=== PATIENT | male | born 1965 | race Caucasian/White ===

== ENCOUNTER 2017-08-26 12:35 | Inpatient (IN) | payer BC ==
--- NOTE | 2017-08-23 03:46 | HP ---
HISTORY AND PHYSICAL: DATE OF ADMISSION/SURGERY: 08/26/17 DATE OF OFFICE VISIT: 08/20/17 SURGEON: Ashly Jones MD * (DICTATED BY CARLOS GRUBER) PROCEDURE: Removal of hardware, right hip. CHIEF COMPLAINT: Right hip pain. HISTORY OF PRESENT ILLNESS: Mr. Norwood is a 51-year-old gentleman who underwent a right total hip arthroplasty back in May. Since that time, he has had pain in the right hip radiating down the right leg with numbness and tingling of the right foot and weakness of his right foot. A CT scan shows a screw that is abutting the right sciatic nerve. Conservative treatment with medications has not helped with the pain and he is elected to proceed with surgery to remove the screw. PAST MEDICAL HISTORY: Hypertension, history of AFib, and high cholesterol. PAST SURGICAL HISTORY: Right total hip arthroplasty, left ring finger fracture surgery, tonsillectomy, testicular torsion surgery for the left, and hernia repair. CURRENT MEDICATIONS: 1. Aspirin. 2. Gabapentin 300 mg 3 times a day. 3. Amlodipine 10 mg daily. 4. Toprol 25 mg daily. ALLERGIES: None. FAMILY HISTORY: Heart disease, pulmonary hypertension, diabetes, and RA. SOCIAL HISTORY: He is a 51-year-old gentleman, lives with his spouse. He is self- employed contractor. He does not smoke or use drugs. He uses occasional alcohol. REVIEW OF SYSTEMS: A complete 14-point review of systems was reviewed with the patient, it was all negative or noncontributory. He does have a history of severe vomiting with general anesthesia. PHYSICAL EXAMINATION GENERAL: He is well developed, well nourished, in no acute distress. VITAL SIGNS: Stands 6 feet 2 inches tall, weighs 227 pounds. His blood pressure is 127/80, his heart rate is 75. HEENT: Normocephalic, atraumatic. NECK: Supple. No palpable lymph nodes. PULMONARY: The lungs are clear to auscultation bilaterally. CARDIO: Regular rate and rhythm. Strong S1, S2. ABDOMEN: Soft, nontender, and nondistended. NEUROLOGIC: Alert and oriented x3. Cranial nerves II through XII are intact. MUSCULOSKELETAL: Right lower extremity, the skin is intact. There are no open wounds or abrasions. There is a well-healed incision over the lateral right thigh. He has decreased sensation over the right lateral lower leg dorsal foot and great toe. He is unable to dorsiflex the right foot. He has a complete right toe drop in 1/5 weakness with right plantar flexion. He has 2+ dorsalis pedis pulses. ASSESSMENT AND PLAN: Mr. Norwood is a 51-year-old gentleman who underwent a right total hip arthroplasty in May. He is having pain, numbness, tingling, and weakness of his right lower leg and foot. CT scan showed a screw through the right sciatic nerve. He is elected to proceed with surgery to have this hardware remove. The surgery is scheduled for 08/26/[address] Jones discussed the risks and benefits of surgery at today's visit and all of his questions were answered. He will follow up in 2 weeks after the surgery with Dr. Jones. CARLOS GRUBER [id number]/[facility] #: [id number] ABRIL
--- NOTE | 2017-08-24 13:48 | HP ---
ADDENDUM: DATE OF SURGERY: 08/26/17 SURGEON: Ashly Jones MD. PROCEDURE: Revision right total hip arthroplasty with screw removal and possible liner removal. CARLOS GRUBER [id number]/[facility] #: [id number] MTDD
[~2017-08-26 12:35] MED LIST: Buffered Lidocaine 0.9% SYRIN* 5 ML/SYR SYRINGE INTRADERM ONE; Dexamethasone IV* 4 MG/ML 1 ML (4 MG) IV SLOW PU ONE; Famotidine IV* 10 MG/ML 2 ML (20 mg) IV ONE
[2017-08-26] MEDS ORDERED: ceFAZolin 2 GM PREMIX (*) 2 GM/50 ML BAG IVPB ONE (12:51)
[2017-08-26] MEDS ORDERED: Famotidine IV* 10 MG/ML 2 ML (20 mg) ONE (12:51)
[2017-08-26] MEDS ORDERED: Dexamethasone IV* 4 MG/ML 1 ML (4 MG) ONE (12:51)
[2017-08-26] MEDS ORDERED: Buffered Lidocaine 0.9% SYRIN* 5 ML/SYR SYRINGE ONE (12:51)
[2017-08-26] MEDS ORDERED: fentaNYL* 50 MCG/ML 2 ML VIAL (100 MCG VIAL) IV PRN (13:23)
[2017-08-26] MEDS ORDERED: Ondansetron INJ* 2 MG/ML VIAL IV PRN ×2 (13:23→18:01)
[2017-08-26] MEDS ORDERED: PROCHLORPERAZINE INJ 5 MG/ML 2 ML VIAL IV PRN (13:23)
[2017-08-26] MEDS ORDERED: oxyCODONE TAB* 5 MG TAB PO PRN (13:23)
[2017-08-26] MEDS ORDERED: Ibuprofen TAB* 600 MG PO PRN (13:23)
[2017-08-26] MEDS ORDERED: HYDROmorphone INJ* 1 MG/ML CARPUJECT SYRINGE IV PRN (13:23)
[2017-08-26] MEDS ORDERED: oxyCODONE/Acetamin 5/325 MG* TAB PO PRN ×3 (13:23→18:01)
[2017-08-26] MEDS ORDERED: Scopolamine 1.5 mg* PATCH TRANSDERM PRN (13:23)
[2017-08-26] MEDS ORDERED: Lidocaine 2% PF * 5 ML VIAL ONE (13:26)
[2017-08-26] MEDS ORDERED: fentaNYL* 50 MCG/ML 2 ML VIAL (100 MCG VIAL) ONE (13:26)
[2017-08-26] MEDS ORDERED: Cisatracurium* 2 MG/ML MDV 5 ML ONE (13:26)
[2017-08-26] MEDS ORDERED: Midazolam* 1 MG/ML 2 ML VIAL (2 MG) ONE (13:26)
[2017-08-26] MEDS ORDERED: Propofol* 10 MG/ML 20 ML BTL IV PUSH ONE ×2 (13:26→16:28)
[2017-08-26] MEDS ORDERED: Sterile Water for Inj* 10 ML ONE (16:11)
[2017-08-26] MEDS ORDERED: Esmolol* 10 MG/ML 10 ML (100 mg) ONE (16:11)
[2017-08-26] MEDS ORDERED: Ketorolac INJ* 30 MG/ML 1 ML VIAL ONE (16:11)
[2017-08-26] MEDS ORDERED: EPHEDrine (Pressors)* 50 MG/ML VIAL ONE (16:11)
[2017-08-26] MEDS ORDERED: Ondansetron INJ* 2 MG/ML VIAL ONE ×2 (16:11→19:02)
[2017-08-26] MEDS ORDERED: Phenylephrine IV* 40 MCG/ML 10 ML SYRINGE ONE (16:11)
[2017-08-26] MEDS ORDERED: HYDROmorphone INJ* 1 MG/ML CARPUJECT SYRINGE ONE (16:29)
[2017-08-26] MEDS ORDERED: Ondansetron TAB* 4 MG PO PRN (18:01)
[2017-08-26] MEDS ORDERED: Acetaminophen TAB* 325 MG PO PRN (18:01)
[2017-08-26] MEDS ORDERED: Bisacodyl SUPP* 10 MG SUPP PR PRN (18:01)
[2017-08-26] MEDS ORDERED: diPHENhydraMINE IV* 50 MG/ML 1 ml VIAL (BENADRYL) IV PRN (18:01)
[2017-08-26] MEDS ORDERED: Polyethylene Glycol 3350* 17 GM PACKET PO PRN (18:01)
[2017-08-26] MEDS ORDERED: Magnesium Hydroxide LIQ* 30 ML UDC PO PRN (18:01)
[2017-08-26] MEDS ORDERED: Morphine INJ* 2 MG/ML 1 ML SYRINGE (TWO MG - NEW SYRINGE VERSION) IV PRN (18:01)
[2017-08-26] MEDS ORDERED: Cyclobenzaprine TAB* 10 MG PO PRN (18:06)
--- NOTE | 2017-08-26 18:10 | RAD ---
Indication: Right total hip arthroplasty with revision. Single intraoperative view of the right hip demonstrates right acetabular cup and femoral reamer in place. IMPRESSION: Intraoperative control films for right hip replacement.
[2017-08-26] MEDS ORDERED: Bupivacaine 0.5% SDV PF* 30 ML VIAL ONE (18:11)
[2017-08-26] MEDS ORDERED: PROCHLORPERAZINE INJ 5 MG/ML 2 ML VIAL ONE (19:02)
--- NOTE | 2017-08-26 19:31 | RAD ---
Indication: Right hip replacement. 2 views of the right hip demonstrates right hip replacement in satisfactory position. No loosening is noted. Components appear to be satisfactory. IMPRESSION: Right hip replacement is in satisfactory position.
--- NOTE | 2017-08-26 19:33 | RAD ---
Indication: Status post right hip replacement. Single view of the pelvis demonstrates right hip replacement in satisfactory position. Portillo catheter is in place. IMPRESSION: Right hip replacement in satisfactory position.
[2017-08-26] MEDS: Gabapentin CAP(*) 300 MG PO SCH (21:04)
[2017-08-26] MEDS: Docusate CAP* 100 MG PO SCH (21:05)
[2017-08-26] MEDS: ceFAZolin 1 GM VIAL(*) 1 GM in D5W 50 ML BAG* 50 ML IVPB SCH (23:53)
--- NOTE | 2017-08-27 03:28 | OP ---
DATE OF OPERATION: 08/26/17 - ROOM #[id number] DATE OF : 61 SURGEON: Ashly Jones MD NUMERICAL CONTROL ROUTER OPERATOR: CARLOS Merino. Ms. Weinstein did help throughout the procedure with preparation of the leg, wound retraction, manipulation of the hip, and wound closure. ANESTHESIOLOGIST: Selena Garsia MD ANESTHESIA: General. PRE-OP DIAGNOSES: Severe pain and sciatic nerve palsy, right lower extremity. POST-OP DIAGNOSES: Severe pain and sciatic nerve palsy, right lower extremity. OPERATIVE PROCEDURE: Revision, right total hip arthroplasty with exchange of the polyethylene liner, femoral head, and removal of an acetabular screw. INDICATIONS: Mr. Norwood is a 51-year-old gentleman, who had right total hip arthroplasty at an outside facility in May of this year. In the immediate postoperative period, he noted extreme pain in the right lower extremity and a dense sciatic nerve palsy. The patient has struggled with footdrop and severe pain since the surgery. He did go on to have a nerve conduction study that showed this was a high level lumbosacral nerve injury. CT scan did show one of the acetabular screws extended through the bone and did make contact with portion of the sciatic nerve. The patient saw me for his consultation and wished to have the screw removed in the hopes that this would lessen some of his pain and allow his nerve palsy to improve down the road. The patient and his understood that I could not guarantee any improvement in symptoms after screw removal. I agreed to the revision surgery with the understanding that they accepted increased risk of infection, increased risk of dislocation, and several other risks due to the second surgical approach within 3 months. The patient and his accepted the surgical risks. They wished to proceed. The patient, his , and I discussed that liner removal and screw removal could proceed smoothly or have complications requiring revision of the entire acetabular cup. They accepted these risks. COMPLICATIONS: None. ESTIMATED BLOOD LOSS: 800 cc. SPECIMEN REMOVED: Screw, femoral head and polyethylene sent to Pathology. INTRAOPERATIVE FINDINGS: Intraoperatively, the patient was noted to have extensive scar tissue and muscle contracture. He had stiff hip with minimal flexion. In the 3 months since his original surgery, he had formed a significant amount of scar. The femoral head and liner were removed and noted to have no obvious abnormalities. The screw was removed and noted to have no obvious abnormality. DESCRIPTION OF PROCEDURE: Mr. Norwood was identified in the preanesthesia unit. His right lower extremity was marked as the correct operative side. Informed consent was signed and placed in the chart. The patient was taken to the operating room and placed under general anesthesia. A Portillo catheter was placed. The patient was placed on left lateral decubitus position on the peg board with all bony prominences well padded. Right lower extremity was prepped and draped in the usual sterile fashion. Preop time-out was made to correctly identify the patient's side and site. Appropriate perioperative antibiotics were given within 1 hour of incision. The patient's prior incision was used and extended 2 cm distally. Skin knife was used to dissect down to the lateral fascial layer. There was extensive scar formation in the subcutaneous fat layer. The lateral fascial layer was identified and incised in line with the skin incision. Soft tissue was carefully cleared around each edge of the lateral fascial layer. Charnley retractor was placed. Single posterior flap was made with electrocautery through the prior tendons and capsule region. This was carried down to bone for the safest approach. This flap was tagged with #5 Ethibond's. It was noted that the patient had extensive scar formation. No purulence or signs of infection. It was noted that the patient had extremely stiff hip with difficulty flexing and moving the head. Scar tissue was meticulously debrided from around the acetabulum and polyethylene. The hip was carefully dislocated. Using a bone tamp, the femoral head was removed. No damage to the femoral neck was noted. Femoral head was with-out abnormality. Next, dissection continued around the polyethylene liner and acetabular cup. Extensive scar formation had occurred and this was carefully debrided from around the polyethylene liner. A cancellous bone screw and drill were used to carefully remove the polyethylene liner. Polyethylene liner had no obvious damage to it. At this point, the hip was copiously irrigated with sterile saline. Once more, the edges of the acetabular cup were carefully attended to with electrocautery and rongeur. Any scar tissue was carefully removed. The inferior posterior screw was carefully removed using a screw route driver coin machines. There was no complication with this. A trial 44 liner was placed in a trial 44 plus 0 femoral head. The hip was reduced and taken through a range of motion. The hip was stable in all positions. A flat AP view of the hip was obtained intraoperatively. It was confirmed that the appropriate screw had been removed. The hip was carefully dislocated. All trials were removed. Final implant chosen was a Trident X3 0-degree polyethylene insert, 44G. This was carefully impacted into the acetabular cup. First attempt at this did damage the polyethylene liner. The liner was noted to have a scratch on it. Therefore, this was discarded and a second one was opened. 44G Trident X3 0-degree polyethylene insert was impacted into the acetabulum. Stability of the liner was checked and rechecked and noted to be stable. Next, a 44 +0 Biolox delta anatomic femoral head with a +0 adapter sleeve was chosen. This was impacted on to the femoral neck without difficulty. The hip was carefully dislocated. The hip was taken through range of motion and noted to be stable in all positions. The hip was copiously irrigated with sterile saline. The previously tagged capsular flap was reapproximated to the posterolateral femur through two trochanteric drill holes. Lateral fascial layer was closed using interrupted # 1 Vicryls. The rest of the incision was closed in layered fashion using 0 and 2 -0 Vicryls. The skin was closed using running 3-0 Monocryl and Dermabond. Sterile Adaptic, 4x4's, and paper tape were used to cover the incision. The patient's anesthesia was reversed without difficulty. He was taken to the PACU in stable condition. Intended weightbearing will be weightbearing as tolerated with strict posterior hip precautions. Intended DVT prophylaxis will be Coumadin with a Lovenox bridge. [id number]/[facility] #: [id number] ABRIL
--- NOTE | 2017-08-27 05:50 | CONSULT ---
Consult Consult: PCP: Maury Palacio NP Date/Time: 08/26/2017 2100 Reason for Consult: management of pAFIB, HTN, & HLD HPI: Mr Norwood is a 51YO male HX R ARIADNE 05/2017 complicated by sciatic-type pain ever since. Ultimately it was found that an acetabular screw was abutting his sciatic nerve and so urgent removal was arranged and performed this evening. He is seen in recovery and denies pain, N/V, SOB, or other issues. PMedHx pAFIB not on anticoagulation HTN HLD Ambulatory Orders Amlodipine Besylate [Norvasc 5 mg tab] 10 mg PO DAILY 11/16/16 Metoprolol Succinate [Toprol Xl] 25 mg PO QAM 11/16/16 Gabapentin CAP(*) [Neurontin 300 CAP(*)] 300 mg PO TID 08/24/17 Allergies No Known Allergies Allergy (Verified 08/26/17 13:05) PSurgHx tonsillectomy hernia repair L testicular torsion ORIF L 4th finger R ARIADNE complicated by acetabular screw abutting the sciatic nerve SocHx: no tobacco, occasional alcohol, no recreational drugs; lives with his ; self-employed contractor; full code status FamHx: positive for HTN, CAD, DM2, RA ROS: as above, otherwise reviewed and all were negative vitals: Vital Signs Temp 36.7 C 08/27/17 02:15 Pulse 92 08/27/17 02:15 Resp 17 08/27/17 02:15 BP 124/65 08/27/17 02:15 Pulse Ox 98 08/27/17 02:15 Intake & Output 08/26/17 08/26/17 08/27/17 11:59 23:59 11:59 Intake Total 3775 400 Output Total 2400 1300 Balance 1375 -900 Weight 107.048 kg Intake: IV Fluids 3550 LR 3500 NS 50ML, Cefazolin 2G 50 Oral 225 400 Output: Portillo 1600 1300 Estimated Blood Loss 800 Constitutional: NAD, normally developed, obese white male HEENM: atraumatic; sclera/conjunctiva: anicteric/clear; hearing: clinically intact; oropharynx: clear, mucosa moist Neck: soft tissue: non-tender; thyroid: normal Pulmonary: clear to auscultation bilaterally, good aeration, no accessory muscle use CV: RR/RR, normal S1S2, no carotid bruit, no jugular venous distention, 2+ B DP/ PT, no edema Abdominal: soft, non-distended, non-tender, no rebound/guarding/rigidity, normoactive bowel sounds, no hepatosplenomegaly or masses, no costovertebral angle tenderness Musculoskeletal: general: grossly intact, currently in wedge Integumental: normal appearance and texture of exposed skin Psychiatric orientation: AA&O to PPS affect: calm mood: cooperative eye contact: good content: reliable responses: timely insight: good Testing: Lab Results 08/26/17 Range/Units 16:34 Blood Type A Positive Antibody Screen Negative Impression: 51M evaluated in recover s/p removal/replacement of acetabular screw found abutting the R sciatic nerve DIAGNOSIS & PLAN Primary acetabular screw removal/repositioning : management per orthopedic surgery : pain control Secondary pAFIB : not on anticoagulation : continue metoprolol HTN : continue metoprolol & amlodipine HLD : low fat diet Admission Rational: surgical correction of R acetabular screw abutting the sciatic nerve DVTp: heparin SQ once approved by orthopedics Code Status: full HCP:
[2017-08-27] MEDS: oxyCODONE TAB* 5 MG TAB PO PRN ×2 (06:13→13:06)
[2017-08-27 06:47] LABS: Hematocrit 36 % (42-52); Hemoglobin 12.4 g/dl (14.0-18.0)
[2017-08-27 07:03] LABS: BUN/Creatinine Ratio 14.3 (8-20); Calcium 9.2 mg/dL (8.6-10.3); EGFR African American 122.9 (>60); EGFR Non-African American 95.6 (>60); Potassium 4.2 mmol/L (3.5-5.0)
--- NOTE | 2017-08-27 07:37 | PN ---
Progress Note - Progress Note Date of Service: 08/27/17 SOAP: Subjective: Pt. is alert, reports nerve pain is already improved. Objective: RLE - baseline dense foot drop, 0/5 df/ehl, 2/5 pf, decreased sens lt entire foot, 2+dp pulse. dressing c/d/i, thigh soft. Vital Signs: Temp Pulse Resp BP Pulse Ox 98.1 F 92 17 124/65 98 08/27/17 02:15 08/27/17 02:15 08/27/17 06:13 08/27/17 02:15 08/27/17 02:15 Laboratory Results - last 24 hr 08/26/17 08/27/17 08/27/17 16:34 05:46 05:46 Hgb 12.4 L Hct 36 L INR (Anticoag Therapy) 1.06 H Sodium Potassium Chloride Carbon Dioxide Anion Gap BUN Creatinine Est GFR ( Amer) Est GFR (Non-Af Amer) BUN/Creatinine Ratio Glucose Calcium Blood Type A Positive Antibody Screen Negative 08/27/17 05:46 Hgb Hct INR (Anticoag Therapy) Sodium 137 Potassium 4.2 Chloride 102 Carbon Dioxide 28 Anion Gap 7 BUN 12 Creatinine 0.84 Est GFR ( Amer) 122.9 Est GFR (Non-Af Amer) 95.6 BUN/Creatinine Ratio 14.3 Glucose 127 H Calcium 9.2 Blood Type Antibody Screen Assessment: 51 yo M pod 1 s/p revision RTHA with screw removal, liner and femoral head exchange Plan: wbat strict post hip precautions pt/ot plan d/c to home 08/28
[2017-08-27] MEDS: ceFAZolin 1 GM VIAL(*) 1 GM in D5W 50 ML BAG* 50 ML IVPB SCH ×2 (08:22→16:42)
[2017-08-27] MEDS: Gabapentin CAP(*) 300 MG PO SCH ×3 (08:22→23:47)
[2017-08-27] MEDS: Docusate CAP* 100 MG PO SCH ×2 (08:23→21:00)
[2017-08-27] MEDS: amLODIPine TAB* 5 MG PO SCH (08:23)
[2017-08-27] MEDS: Metoprolol Succinate XL TAB* 25 MG PO SCH (08:23)
--- NOTE | 2017-08-27 11:50 | PN ---
Subjective Date of Service: 08/27/17 Interval History: Pt is feeling well. His pain in his R hip is manageable. He denies any CP or SOB. Objective Active Medications: Acetaminophen (Tylenol Tab*) 650 mg PO Q4H PRN PRN Reason: PAIN OR TEMPERATURE Amlodipine Besylate (Norvasc Tab*) 10 mg PO DAILY [facility] Last Admin: 08/27/17 08:23 Dose: 10 mg Bisacodyl (Dulcolax Supp*) 10 mg [place] DAILY PRN PRN Reason: constipation Cyclobenzaprine HCl (Flexeril Tab*) 10 mg PO TID PRN PRN Reason: SPASMS Diphenhydramine HCl (Benadryl Iv*) 12.5 mg IV Q6H PRN PRN Reason: PRURITIS Docusate Sodium (Colace Cap*) 100 mg PO BID [facility] Last Admin: 08/27/17 08:23 Dose: 100 mg Enoxaparin Sodium (Lovenox(*)) 40 mg SUBCUT Q24H [facility] Gabapentin (Neurontin Cap(*)) 300 mg PO TID [facility] Last Admin: 08/27/17 08:22 Dose: 300 mg Cefazolin Sodium 1 gm/ (Dextrose) 50 mls @ 200 mls/hr IVPB Q8H [facility] Stop: 08/27/17 16:14 Last Admin: 08/27/17 08:22 Dose: 200 mls/hr Lactated Ringer's (Lactated Ringers 1000 Ml Bag*) 1,000 mls @ 100 mls/hr IV PER RATE [facility] Last Admin: 08/27/17 09:17 Dose: 100 mls/hr Lactulose (Lactulose*) 30 ml PO Q6H PRN PRN Reason: constipation Magnesium Hydroxide (Milk Of Magnesia Liq*) 30 ml PO Q6H PRN PRN Reason: constipation Metoprolol Succinate (Toprol Xl Tab*) 25 mg PO QAM [facility] Last Admin: 08/27/17 08:23 Dose: 25 mg Morphine Sulfate (Morphine Inj (Syringe)*) 2 mg IV Q2H PRN PRN Reason: PAIN Ondansetron HCl (Zofran Inj*) 4 mg IV Q6H PRN PRN Reason: nausea Ondansetron HCl (Zofran Tab*) 4 mg PO Q6H PRN PRN Reason: NAUSEA Oxycodone HCl (Roxycodone Tab*) 10 mg PO Q4H PRN PRN Reason: SEVERE PAIN Last Admin: 08/27/17 06:13 Dose: 10 mg Oxycodone/Acetaminophen (Percocet 5/325 Tab*) 1 tab PO Q4H PRN PRN Reason: PAIN Oxycodone/Acetaminophen (Percocet 5/325 Tab*) 2 tab PO Q4H PRN PRN Reason: PAIN Pharmacy Profile Note (Scopolamine Patch Remove*) 1 note PATCH OFF Q72H ONE Stop: 08/29/17 13:25 Polyethylene Glycol/Electrolytes (Miralax*) 17 gm PO DAILY PRN PRN Reason: Constipation Scopolamine (Transderm-Scop 1.5 Mg Patch*) 1 patch TRANSDERM Q72H PRN PRN Reason: Nausea/Vomiting Vital Signs - 8 hr 08/27/17 08/27/17 08/27/17 06:13 07:56 08:00 Temperature 98.8 F Pulse Rate 103 Respiratory 17 16 18 Rate Blood Pressure 124/79 (mmHg) O2 Sat by Pulse 99 99 Oximetry 08/27/17 08/27/17 08/27/17 08:17 08:22 11:02 Temperature Pulse Rate Respiratory 18 18 18 Rate Blood Pressure (mmHg) O2 Sat by Pulse Oximetry Oxygen Devices in Use Now: None Appearance: Middle aged male sitting up in bed, NAD Eyes: No Scleral Icterus Ears/Nose/Mouth/Throat: Mucous Membranes Moist Respiratory: Symmetrical Chest Expansion and Respiratory Effort, Clear to Auscultation Cardiovascular: NL Sounds; No Murmurs; No JVD, - - irregularly irregular, slightly tachycardic Abdominal: NL Sounds; No Tenderness; No Distention Skin: No Rash or Ulcers, No Nodules or Sclerosis Neurological: Alert and Oriented x 3 Result Diagrams: 08/27/17 05:46 08/27/17 05:46 Assess/Plan/Problems-Billing Mr Norwood is a 51 yo M who has a h/o afib and HTN who was admitted following a R total hip revision with Dr. Jones. - Patient Problems (1) S/P revision of total hip Current Visit: Yes Status: Acute Code(s): Z96.649 - PRESENCE OF UNSPECIFIED ARTIFICIAL HIP JOINT SNOMED Code(s): 933750908 Comment: Management per Dr Jones. (2) HTN (hypertension) Current Visit: Yes Status: Acute Code(s): I10 - ESSENTIAL (PRIMARY) HYPERTENSION SNOMED Code(s): 19388300 Comment: BP is under good control on current medication regimen. Continue to monitor. (3) Afib Current Visit: Yes Status: Acute Code(s): I48.91 - UNSPECIFIED ATRIAL FIBRILLATION SNOMED Code(s): 17366020 Comment: HR is mildly elevated but possibly being driven by pain. No other issues. Continue metoprolol XL 25mg daily for now but if HR remains elevated will increase to 37.5mg daily. (4) DVT prophylaxis Current Visit: Yes Status: Acute Code(s): QMI6404 - SNOMED Code(s): 867771865 Comment: elias (5) Full code status Current Visit: Yes Status: Acute Code(s): Z78.9 - OTHER SPECIFIED HEALTH STATUS SNOMED Code(s): 110861359
[2017-08-27] MEDS: Enoxaparin(*) 40 MG/0.4 ML SYR SUBCUT SCH (13:07)
[2017-08-28] MEDS: oxyCODONE TAB* 5 MG TAB PO PRN (04:33)
[2017-08-28 05:31] LABS: Hematocrit 34 % (42-52); Hemoglobin 11.7 g/dl (14.0-18.0); Mean Platelet Volume 7 um3 (7.4-10.4)
[2017-08-28] MEDS: amLODIPine TAB* 5 MG PO SCH (08:36)
[2017-08-28] MEDS: Metoprolol Succinate XL TAB* 25 MG PO SCH (08:36)
[2017-08-28] MEDS: Docusate CAP* 100 MG PO SCH (08:37)
[2017-08-28] MEDS: Gabapentin CAP(*) 300 MG PO SCH (08:37)
[2017-08-28] MEDS ORDERED: Metoprolol Succinate XL TAB* 25 MG PO ONE (09:32)
[2017-08-28 11:28] VITALS: BP 115/71
--- NOTE | 2017-08-28 11:37 | PN ---
Progress Note - Progress Note Date of Service: 08/28/17 SOAP: Subjective: Pt. is alert and oriented, reports nerve pain is improved. Objective: General: Pts HR is increased. Cardiology will see pt today. RLE - baseline dense foot drop, 0/5 df/ehl, 2/5 pf, decreased sens lt entire foot, 2+dp pulse. dressing changed today, incision is c/d/i, no drainage, thigh soft. Vital Signs Temp 99.7 F 08/28/17 11:14 Pulse 109 08/28/17 11:14 Resp 16 08/28/17 11:14 BP 115/71 08/28/17 11:14 Pulse Ox 95 08/28/17 11:14 Intake & Output 08/27/17 08/28/17 08/28/17 18:59 06:59 18:59 Intake Total 1549 600 480 Output Total 475 350 Balance 1074 250 480 Intake: IVPB 1219 ABX - CEFAZOLIN 114 LR 1105 Oral 330 600 480 Output: Urine 475 350 Other: Estimated Void Medium # Bowel Movements 0 Assessment: 51 yo M pod 2 s/p revision RTHA with screw removal, liner and femoral head exchange Plan: wbat strict post hip precautions pt/ot possible discharge today if cardiology clears the pt. ASA 325 bid once home for anticoagulation
[2017-08-28] MEDS: Enoxaparin(*) 40 MG/0.4 ML SYR SUBCUT SCH (12:00)
--- NOTE | 2017-08-28 19:14 | PN ---
Subjective Date of Service: 08/28/17 Interval History: Pt is feeling well. He does not feel his heart racing. He denies any chest pain or SOB. He has mild sciatic type pain in his R leg but was able to do PT today without any difficulty. Nursing notes that his HR is elevated with exertion. Objective Vital Signs - 8 hr 08/28/17 11:14 Temperature 99.7 F Pulse Rate 109 Respiratory 16 Rate Blood Pressure 115/71 (mmHg) O2 Sat by Pulse 95 Oximetry Oxygen Devices in Use Now: None Appearance: Middle aged male sitting in a chair, NAD Eyes: No Scleral Icterus Ears/Nose/Mouth/Throat: Mucous Membranes Moist Respiratory: Symmetrical Chest Expansion and Respiratory Effort, Clear to Auscultation Cardiovascular: NL Sounds; No Murmurs; No JVD, - - tachycardic but regular Abdominal: NL Sounds; No Tenderness; No Distention Extremities: No Clubbing, Cyanosis Skin: No Rash or Ulcers, No Nodules or Sclerosis Neurological: Alert and Oriented x 3 Result Diagrams: 08/28/17 05:21 08/27/17 05:46 Assess/Plan/Problems-Billing Mr Norwood is a 51 yo M who has a h/o afib and HTN who was admitted following a R total hip revision with Dr. Jones. - Patient Problems (1) S/P revision of total hip Status: Acute Code(s): Z96.649 - PRESENCE OF UNSPECIFIED ARTIFICIAL HIP JOINT SNOMED Code(s): 761290151 Comment: Management per Dr Jones. (2) HTN (hypertension) Status: Acute Code(s): I10 - ESSENTIAL (PRIMARY) HYPERTENSION SNOMED Code(s) : 58217442 Comment: BP is under good control on current medication regimen. Continue to monitor. (3) Afib Status: Acute Code(s): I48.91 - UNSPECIFIED ATRIAL FIBRILLATION SNOMED Code( s): 68596260 Comment: The patient is in sinus tachycardia on tele/EKG. Sinus tachycardia likely secondary to pain/recent surgery. I spoke with the coldfusion publication designer and it was felt it was ok to d/c the patient home on his usual dose of metoprolol. As the patient is going home today, I have asked that the patient get a follow up with his PCP in the next few days to ensure his HR has come down. (4) DVT prophylaxis Status: Acute Code(s): ELS8746 - SNOMED Code(s): 854639154 Comment: coumadin (5) Full code status Status: Acute Code(s): Z78.9 - OTHER SPECIFIED HEALTH STATUS SNOMED Code(s) : 776804748
[2017-08-29] MEDS ORDERED: Scopolamine PATCH Remove* 1 NOTE MISC PATCH OFF ONE (13:24)
--- NOTE | 2017-08-30 05:15 | DS ---
DISCHARGE SUMMARY: DATE OF ADMISSION: 08/26/17 DATE OF DISCHARGE: 08/28/17 PROVIDER: Dr. Ashly Jones * (DICTATED BY CARLOS PORRAS) ADMITTING DIAGNOSIS: Removal of hardware of right hip. CONSULTATIONS: Physical Therapy, Occupational Therapy, and Hospital Medicine. HOSPITAL COURSE: The patient was admitted to [facility] on 08/26/17 and underwent a revision of right total hip arthroplasty with no complications. The patient recovered briefly in the postanesthesia care unit and was then transferred to the short stay surgical unit in stable condition. On postop day #1, the patient's H and H was 12.4 and 36, INR was 1.06 after 6 mg of Coumadin the night before. Dressing was clean, dry, and intact. The lower extremity was neurovascularly intact. He could demonstrate dorsiflexion and plantarflexion with good strength. The patient was able to get out of bed with physical therapy. Pain was well controlled with the Percocet 5/325 and Flexeril. On postop day #2, the urinary catheter was discontinued and the patient was able to void without difficulty. Incision was found to be benign with minimal drainage. No erythema or warmth. The patient's H and H was 11.7 and 34 and INR was 1.10 after 6 mg of Coumadin the night before. Pain was well controlled with Percocet again and Flexeril. The patient was able to ambulate with the use of a rolling walker and assistance. The patient's pain was well controlled and found to be stable for discharge. Throughout the hospital course , vital signs remained stable and the patient was afebrile. DISCHARGE CONDITION: Good. DISCHARGE MEDICATIONS: 1. Flexeril. 2. Percocet 5/325. 3. Aspirin 325 b.i.d. Home Medications: 1. Gabapentin 300 mg 3 times a day. 2. Amlodipine 10 mg daily. 3. Metoprolol 25 mg daily. DISCHARGE INSTRUCTIONS: 1. Weight bearing as tolerated. 2. Wound care: Okay to shower. No bathing, swimming, or submerging wound. Use gentle soap, pat dry. Cover with gauze or an Misael wrap or tape. Call orthopedic office for increased drainage, redness, increased pain or fever. Go to ER with shortness of breath or chest pain. 3. Diet: Regular diet. Increase fluids and fibers to prevent constipation. Continue to use stool softeners. Call office if no bowel motion within 48 hours. 4. Continue hip precautions, do no cross legs, or bend greater than 90 degrees or squat. 5. Continue physical therapy and occupational therapy exercises as shown. 6. Visiting home nurses to do wound check. 7. Aspirin 325 b.i.d. x 30 days. 8. Pain control with Percocet 5/325 and Flexeril 10 mg 3 times a day as needed for muscle spasms. 9. Antibiotics required prior to any dental work. 10. Follow up with Dr. Ashly Jones within 10 to 14 days. Call for an appointment. 11. Follow up with PCP for tachycardia sometime this week. CARLOS PORRAS [id number]/[facility] #: [id number] ABRIL
== END 2017-08-28 12:50 | disposition home health service (06) | DRG 301 ==
LOC: AA 12:35 → SSU 20:05
PROVIDERS: ADMIT Orthopaedic Surgery Adult Reconstructive Orthopaedic Surgery; ATTEND Hospitalist
PROC: 0SUR09Z Supplement Right Hip Joint, Femoral Surface with Liner, Open Approach (ICD-10-PCS; 2017-08-26)
PROC: 0SP909Z Removal of Liner from Right Hip Joint, Open Approach (ICD-10-PCS; principal; 2017-08-26 15:00)
DX: T84.090A Other mechanical complication of internal right hip prosthesis, initial encounter (principal); I48.0 Paroxysmal atrial fibrillation; G58.8 Other specified mononeuropathies; I10 Essential (primary) hypertension; E78.5 Hyperlipidemia, unspecified; Y79.2 Prosthetic and other implants, materials and accessory orthopedic devices associated with adverse incidents; M10.9 Gout, unspecified; M21.371 Foot drop, right foot; M54.30 Sciatica, unspecified side; Z82.49 Family history of ischemic heart disease and other diseases of the circulatory system; Y92.009 Unspecified place in unspecified non-institutional (private) residence as the place of occurrence of the external cause; Z83.3 Family history of diabetes mellitus; Z82.61 Family history of arthritis; Z72.89 Other problems related to lifestyle
CPT/HCPCS: 36415; 72170; 80048; 85014; 85018; 85049; 85610; 86850; 86900; 86901; 88300; 93005; 94760; A9270-GY; C1713; C1776; J0690; J0780; J1100; J1170; J1650; J1885; J2250; J2405; J2704; J3010

== ENCOUNTER → 2019-05-05 11:46 | Day surgery (SDC) | payer BC ==
--- NOTE | 2014-08-13 06:45 | HP ---
HISTORY AND PHYSICAL: DATE OF ADMISSION: The patient is scheduled for surgery on 08/24/14 at [facility], [place]. CHIEF COMPLAINT: Symptomatic varicose veins of the right lower leg. HISTORY OF PRESENT ILLNESS: This is a 48-year-old man with a history of painful varicose veins involving the right lower extremity which he has experienced in the past several years. In the past year, this is becoming progressively worse where at this time, he is experiencing pain, cramps, edema, and a sensation of heaviness in the right lower leg. The pain at times is so intense, he has trouble sleeping at night due to the discomfort, the achiness and throbbing, and the increase in intensity has been apparent for the past year. He denies any prior history of deep vein thrombosis or superficial thrombophlebitis. He does have a family history of varicose veins. He did have trauma to his right leg falling off a scaffold in 2004 when he fractured his ankle and experienced some trauma at that time on the right. At the time of his physical exam, on 05/31/14, the varicose veins on the right leg start on the mid portion of his right thigh and transverses anteriorly laterally on the leg. These are large truncal varicosities present which are painful to palpation. He has 1+ edema on the right side. There is no edema on the left. There are no varicosities on the left. There is no hyperpigmentation or ulcerations of the skin on the right. A venous duplex scan done in May revealed the deep system to be normal, there was no evidence of DVT. At the saphenofemoral junction, the reflux time measured at 4 seconds. The greater saphenous vein at the saphenofemoral junction measured 7.8 mm. The upper third of the greater saphenous measured 8.1 mm with a reflux time of 4.6 seconds. The varicosities derived from there measured between 8 and 9 mm in diameter. The short saphenous vein on the right is normal. Impression: The patient has superficial venous reflux disease of the right lower extremity due to an incompetent right greater saphenous vein. Based on these findings, it was recommended to proceed with endoluminal closure of the right greater saphenous vein with microphlebectomies to be performed by Dr. Hayden on 08/24/14. The surgery itself was discussed with the patient. Alternatives were discussed as well. The patient declined the alternatives and wishes to proceed with surgical intervention. He was made aware of the risks associated with this which include DVT, bleeding, infection, thrombophlebitis, and understanding all of these, wishes to proceed with surgery as planned on 08/24/14. PAST MEDICAL HISTORY: He denies any chronic medical disorders. He said he had a heart murmur as a child which was told to be innocent, there was never a treatment and he outgrew this. On our evaluation, his blood pressure has been elevated. He currently is on no medical treatment. PAST SURGICAL HISTORY: Include a fall from scaffolding. 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 This was in 2004. He also had a finger fracture and, I think, tendon surgery done at the [facility] on his left hand. Status post umbilical hernia repair x3; two times with Dr. Sandra, final time with Dr. Chung in 1989, he has a mesh placed at the last surgery. He had tonsils removed at age 3. FAMILY PHYSICIAN: Dr. Chapman. MEDICATIONS: He takes: 1. Red yeast rice extract. 2. Glucosamine. No other medicines. ALLERGIES: He has no known drug allergies. 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 He is , has 2 daughters, and he is a nonsmoker. Alcohol intake is infrequent even on a monthly basis. REVIEW OF SYSTEMS: Negative. PHYSICAL EXAMINATION VITAL SIGNS: Are as follows, his height is 6 feet 1 inch. His weight is 233 pounds. He had a blood pressure of 155/108, this was taken twice; pulse is 85 and regular; respiratory rate is 18. His BMI is 30. HEENT: Within normal limits. NECK: Supple. There is no JVD or carotid bruits. His thyroid is felt to be normal. LUNGS: Clear throughout. HEART: Regular rhythm without a murmur heard. ABDOMEN: Large, soft, and nontender. There are no masses. There are some well - healed scars from his umbilical hernia repair. EXTREMITIES: His lower extremity on the right, the patient has 1+ edema and has truncal varicosities noted on the mid thigh medially; these run anteriorly and laterally across the leg. There is no hyperpigmentation. There is no skin breakdown. NEUROLOGIC: He is alert and oriented x3. He is nonfocal. Grossly intact. IMPRESSION: The patient has superficial venous reflux disease of the right lower extremity due to an incompetent right greater saphenous vein. PLAN/RECOMMENDATIONS: 1. The patient is to undergo endoluminal closure of the right greater saphenous vein with microphlebectomies performed by Dr. Hayden on 08/24/14 at [facility], [place]. 2. The patient had elevated blood pressure readings in our office, as this has not been an issue previously at his medical office which is with Dr. Chapman, he will be in touch with Dr. Chapman for followup blood pressure monitoring and to be considered to have antihypertensives added prior to the surgery. The patient states today he was quite anxious due to a lot of stress maybe resulting in elevated blood pressure on our monitoring. We will be back in touch with him on August 13 in regards to the followup with his blood pressure. CARLOS ESTRADA [id number]/[facility] #: [id number] ABRIL
[2014-08-24 16:54] VITALS: BP 130/78
--- NOTE | 2014-08-25 00:28 | OP ---
DATE OF OPERATION: 08/24/14 - [facility] DATE OF : 61 SURGEON: Aaron Hayden MD ANESTHESIA: Local plus MAC. PREOPERATIVE DIAGNOSIS: Superficial venous reflux disease, right lower extremity secondary to an incompetent right greater saphenous vein. POSTOPERATIVE DIAGNOSIS: Superficial venous reflux disease, right lower extremity secondary to an incompetent right greater saphenous vein. OPERATIVE PROCEDURE: 1. Radiofrequency closure, right greater saphenous vein. 2. Radiofrequency closure, anterolateral accessory branch of the greater saphenous vein. 3. Microphlebectomies greater than 10, less than 20 incisions. ESTIMATED BLOOD LOSS: Approximately 20 cc. PROCEDURE: The patient was taken to the procedure room. He underwent ultrasound mapping of the greater saphenous vein and the anterolateral accessory branch, which was found to be independently refluxing and contributing to the varicosities. The varicosities were marked as well and the patient was then placed in a supine position. He was then prepped and draped in the usual sterile fashion and under sedation, lidocaine 1% was used to infiltrate on the medial aspect of the right knee area. Percutaneous cannulation of the greater saphenous vein was done, with a micropuncture kit, once the small needle and wire were in place, the needle was exchanged. First, 7-Malay 11-cm long introducer sheath was advanced over the wire inside the greater saphenous vein after which we then proceeded to remove the introducer and the wire. The sheath was left in place, which was then back bled and flushed with saline. After this, we accessed the anterolateral accessory branch in the anterior mid thigh. The access was done in the same manner and a 7- Malay 11 cm long introducer sheath was advanced over the wire as well inside the accessory branch. The wire and the introducer were removed. The sheath was left in place. After this was done, we then proceeded to introduce the Fast Track radiofrequency catheter inside the greater saphenous vein via the sheath, positioning the tip of the catheter 2 cm below the saphenofemoral junction. After this was completed, we then proceeded to infiltrate tumescent local anesthesia around the greater saphenous vein and the catheter from the entrance point up to the saphenofemoral junction. After this was completed, we then proceeded to confirm the tip of the catheter to be 2 cm below the saphenofemoral junction and proceeded to activate the radiofrequency unit. The first 7 cm were cycled twice and then the single cycle thereafter, delivering a total of 7 cycles to the greater saphenous vein. After this was done, we then proceeded to introduce the Fast Track radiofrequency inside the anterolateral accessory branch. The tip again was positioned 2 cm below the saphenofemoral junction and after the tumescent local anesthesia was infiltrated around the vein and the catheter, we then proceeded to activate the radiofrequency unit. Two cycles were given to the accessory branch. After this was completed, the treated veins appeared to be thickened as expected. However, the common femoral vein appeared to be compressible without any abnormalities. After this was found, the previously marked varicose veins were then removed by small incision in a stab avulsion technique. Greater than 10, less than 20 incisions were performed and after this was completed, incisions were closed with 5-0 Prolene and Steri- Strips. A light pressure dressing was applied to the right lower extremity. The patient tolerated the procedure well. He was taken in good condition, stable to recovery room. [id number]/[facility] #: [id number] ABRIL
[~2019-05-05 11:46] MED LIST changes: -Buffered Lidocaine 0.9% SYRIN* 5 ML/SYR SYRINGE INTRADERM ONE; -Dexamethasone IV* 4 MG/ML 1 ML (4 MG) IV SLOW PU ONE; -Famotidine IV* 10 MG/ML 2 ML (20 mg) IV ONE; +Famotidine IV* 10 MG/ML 2 ML (20 mg) ONE; +Ketorolac INJ* 30 MG/ML 1 ML VIAL ONE; +Lidocaine 1% MPF* 2 ML VIAL ONE; +Midazolam* 1 MG/ML 5 ML VIAL (5 MG) ONE; +Ondansetron INJ* 2 MG/ML VIAL ONE; +PROPOFOL ONE; +fentaNYL* 50 MCG/ML 2 ML VIAL (100 MCG VIAL) ONE
== END | disposition home or self-care (01) ==
LOC: OREAST 08-24 12:31
PROVIDERS: ATTEND Surgery
DX: I87.2 Venous insufficiency (chronic) (peripheral) (principal); I83.899 Varicose veins of unspecified lower extremity with other complications; I10 Essential (primary) hypertension
CPT/HCPCS: 88300; J1885; J2250; J2405; J3010